=== PATIENT | male | born 1945 | race Caucasian/White ===

== ENCOUNTER 2020-12-22 20:45 | Inpatient (IN) | payer OTHER ==
[~2020-12-22] VITALS: Ht 177.8 cm; Wt 106.2 kg
--- NOTE | ~2020-12-22 | EC ---
PATIENT:LAILA CANAS DATE OF SERVICE: 12/22/20 SEX: M MEDICAL RECORD: [id number] DATE OF : [birth year] LOCATION:[facility] AGE OF PATIENT: 75 ADMISSION DATE: 12/22/20 REFERRING PHYSICIAN: INTERPRETING PHYSICIAN: ROMANA PIPER MD ECHOCARDIOGRAM REPORT ECHO CHARGES 4 ECHO COMPLETE Date: 12/24/20 CLINICAL DIAGNOSIS: LVH ECHOCARDIOGRAPHIC MEASUREMENTS (adult normal given) AC root (d.<3.7cm) 2.8 cm LV Septum d (<1.2 cm> 0.7 cm Valve Excursion 1.8 cm LV Septum (systole) 1.6 cm Left Atria (s.<4.0cm> 3.8 cm LVPW d(<1.2cm) 1.1 cm RV (d.<2.3cm) 3.6 cm LVPW (sytole) 1.8 cm LV diastole(<5.6CM) 6.8 cm MV E-F(>70mm/sec) cm LV systole 4.3 cm LVOT Diameter 1.8 cm MV exc.(>10mm) 1.7 cm Est.ejection fraction (50-75%) % DOPPLER: LVIT cm/sec A 103 cm/sec E 79 cm/sec LA cm/sec RVSP 20 mmHg LVOT 83 cm/sec AOP1/2T m/s Asc. Ao 131 cm/sec RVOT 57 cm/sec RA cm/sec PA 86 cm/sec AV Gradient Peak 6.9 mmHg AV Mean 3.7 mmHg AV Area 2.0 cm MV Gradient Peak 3.6 mmHg MV Mean 2.2 mmHg MV Area cm COMMENTS: Sorority Supervisor: Valencia NORTH Respiratory Therapy Technician: 4 Dr. Piper TAPE# Pericardial Effusion N DATE OF SERVICE: 12/25/2020 PROCEDURE: Transthoracic echocardiogram. FINDINGS: Left ventricle shows mild concentric left ventricular hypertrophy. The overall ejection fraction appears to be normal at 55%. There is no obvious regional wall motion abnormalities. There is diastolic dysfunction. Left atrium not well visualized, but appears to be normal shape, structure, and function. ECHOCARDIOGRAM REPORT [id number] LAILA CANAS RIGHT ATRIUM: 1. Normal size, shape, structure, and function. 2. The aortic valve appears to be grossly normal. 3. Mitral valve appears to be grossly normal with no significant regurgitation. 4. Tricuspid valve has trace tricuspid regurgitation with normal right ventricular systolic pressures. Pericardium appears to be normal. There is no obvious pericardial effusion. There is no obvious pleural effusion. There is no obvious atrial septal defect. IMPRESSION: The patient has evidence of hypertensive heart disease and diastolic dysfunction. Otherwise normal echocardiogram. TRANSINT:[id number] Voice Confirmation ID: [id number] DOCUMENT ID: [id number] ROMANA PIPER MD CC: [id number] DICTATION DATE: 12/25/20 1525 HVAC MAINTENANCE TECHNICIAN: 12/25/20 194 ADM IN [facility] [address] [id number]
[2020-12-22] MEDS ORDERED: [UNRECOGNIZED DRUG - REMARK] (20:50)
[2020-12-22 21:03] VITALS: BP 119/77
[2020-12-22 21:06] LABS: BASOPHILS 0.2 % (0-2); EOSINOPHILS 0.1 % (0-7); HEMATOCRIT 46.7 % (42.0-54.0); HEMOGLOBIN 15.3 g/dL (13.5-17.5); IMMATURE GRANULOCYTES 0.5 % (0-5); LYMPHOCYTES 5.8 % (15-50); MCH 30.9 pg (26.0-34.0); MCHC 32.8 g/dL (31.0-37.0); MCV 94.3 fL (80.0-100.0); MEAN PLATELET VOLUME 11.6 fL (7.4-10.4); MONOCYTES 5.3 % (2-11); NEUTROPHIL ABS# 16.68 10x3/uL (1.78-5.38); NEUTROPHILS 88.1 % (40-80); PLATELET COUNT 173 10x3/uL (130-400); RBC 4.95 10x6/uL (4.20-6.10); RDW 13.7 % (11.5-14.5); WBC 18.9 10x3/uL (4.8-10.8)
[2020-12-22 21:21] LABS: CALC OSMOLALITY 279 mosm/kg (275-300); CALCIUM 9.6 mg/dL (8.5-10.1); CARBON DIOXIDE 24.5 mmol/L (21.0-32.0); CHLORIDE - SERUM 102 mmol/L (98-107); CREATININE - SERUM 1.7 mg/dL (0.6-1.3); GLUCOSE 129 mg/dL (74-106); POTASSIUM - SERUM 3.4 mmol/L (3.5-5.1); SODIUM 138 mmol/L (136-145); UREA NITROGEN 17 mg/dL (7-18); eGFR NON AFRICAN AMERICAN 42 mL/min (90-120)
[2020-12-22 21:26] LABS: INR 1.1 (0.85-1.17); PROTIME 13.2 SECONDS (11.6-15.0)
[2020-12-22 21:26] LABS: NITRITE POSITIVE (NEGATIVE)
[2020-12-22 21:27] LABS: BILIRUBIN NEGATIVE (NEGATIVE); KETONE NEGATIVE (NEGATIVE); UROBILINOGEN NORMAL mg/dL (< 2)
[2020-12-22 21:28] LABS: BACTERIA MANY HPF (NONE SEEN); SQUAMOUS EPITHELIAL NONE SEEN HPF (0-4); WHITE CELLS - URINE >50 HPF (0-1)
[2020-12-22 21:35] LABS: ALBUMIN 3.8 g/dL (3.4-5.0); ALKALINE PHOSPHATASE 82 U/L (30-120); ALT (SGPT) 32 U/L (10-68); BILIRUBIN - TOTAL 0.99 mg/dL (0.2-1.3); C-REACTIVE PROTEIN 10.8 mg/dL (0.0-0.9); CREATINE KINASE 127 UL (21-232); MAGNESIUM - SERUM 1.6 mg/dL (1.8-2.4); PROTEIN - SERUM 7.6 g/dL (6.4-8.2)
[2020-12-22 21:39] LABS: TROPONIN-I < 0.017 ng/mL (0.000-0.060)
--- NOTE | 2020-12-22 22:14 | NUR ---
LAB AT BEDSIDE. BOTH SETS OF BLOOD CULTURES DRAWN AT THIS TIME.
[2020-12-23] VITALS (7 sets, daily range): BP systolic 94–138; BP diastolic 46–79; Ht 177.8 cm; Wt 106.2 kg
--- NOTE | 2020-12-23 00:07 | NUR ---
PT PROVIDED WITH BLANKETS AND ASSITED INTO A POSITION OF COMFORT AT THIS TIME. NO ACUTE DISTRESS NOTED. PT DENIES ANY FURTHER NEEDS.
--- NOTE | 2020-12-23 00:52 | NUR ---
REPORT GIVEN TO MOI SERRANO AT THIS TIME.
[2020-12-23 05:20] LABS: ALBUMIN 3.1 g/dL (3.4-5.0); ALKALINE PHOSPHATASE 64 U/L (30-120); ALT (SGPT) 25 U/L (10-68); BILIRUBIN - TOTAL 0.46 mg/dL (0.2-1.3); CALC OSMOLALITY 283 mosm/kg (275-300); CALCIUM 8.3 mg/dL (8.5-10.1); CARBON DIOXIDE 26.1 mmol/L (21.0-32.0); CHLORIDE - SERUM 108 mmol/L (98-107); CREATININE - SERUM 1.6 mg/dL (0.6-1.3); GLUCOSE 125 mg/dL (74-106); MAGNESIUM - SERUM 2.2 mg/dL (1.8-2.4); POTASSIUM - SERUM 4.5 mmol/L (3.5-5.1); PROTEIN - SERUM 6.4 g/dL (6.4-8.2); SODIUM 141 mmol/L (136-145); TROPONIN-I < 0.017 ng/mL (0.000-0.060); UREA NITROGEN 18 mg/dL (7-18); eGFR NON AFRICAN AMERICAN 45 mL/min (90-120)
[2020-12-23 05:26] LABS: BASOPHILS 0.2 % (0-2); EOSINOPHILS 0 % (0-7); HEMATOCRIT 42.6 % (42.0-54.0); HEMOGLOBIN 13.7 g/dL (13.5-17.5); IMMATURE GRANULOCYTES 0.4 % (0-5); LYMPHOCYTES 9.5 % (15-50); MCH 30.7 pg (26.0-34.0); MCHC 32.2 g/dL (31.0-37.0); MCV 95.5 fL (80.0-100.0); MEAN PLATELET VOLUME 11.2 fL (7.4-10.4); MONOCYTES 6.4 % (2-11); NEUTROPHIL ABS# 16.71 10x3/uL (1.78-5.38); NEUTROPHILS 83.5 % (40-80); PLATELET COUNT 163 10x3/uL (130-400); RBC 4.46 10x6/uL (4.20-6.10); RDW 13.9 % (11.5-14.5)
--- NOTE | 2020-12-23 06:24 | NUR ---
PT ABLE TO TAKE MEDICATION WHOLE, DENIES CURRENT NEEDS. 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
--- NOTE | 2020-12-23 09:07 | NUR ---
PATIENT SITTING UP IN BED WATCHING TV, NO DISTRESS NOTED. RESPIRATIONS EVEN AND UNLABORED, ORIENTED X 4. PATIENT ATE WELL AT BREAKFAST. DENIES ANY NEEDS AT THIS TIME. CALL BUSH IN REACH, SIDE RAILS UP X 2, BED IN LOW POSITION. IV SITE DRY AND INTACT WITH FLUIDS RUNNING AT THIS TIME AT PRESCRIBED RATE.
--- NOTE | 2020-12-23 12:01 | NUR ---
CRITICAL LAB: ROSHAN CAO FROM [facility] IN MICROBIOLOGY. REPORTS POSITVE BC IN 1 BOTTLE: GRAM NEGATIVE RODS. MERON, PRIMARY RN NOTIFIED WILL NOTIFY ADMITTING
--- NOTE | 2020-12-23 17:55 | NUR ---
AFTER PATIENT GOT UP AND AMBULATED AROUND ROOM AND STOOD UP TO URINATE IT WAS NOTED THAT IV TO LEFT AC WAS PULLED OUT. IV DISCONTINUED, TIP INTACT, BLEEDING CONTROLLED. NEW IV STARTED TO RIGHT FOREARM, 22 GAUGE. NS RESTARTED AT THIS TIME.
--- NOTE | 2020-12-23 18:31 | NUR ---
RECEIVED REPORT FROM ALYSON IN ER
[2020-12-24 01:19] VITALS: BP 113/62
[2020-12-24 05:36] VITALS: BP 121/68
[2020-12-24 05:39] LABS: BASOPHILS 0.2 % (0-2); EOSINOPHILS 1.2 % (0-7); HEMOGLOBIN 12.4 g/dL (13.5-17.5); IMMATURE GRANULOCYTES 0.1 % (0-5); LYMPHOCYTE ABS# 1.72 10x3/uL (1.32-3.57); LYMPHOCYTES 12.4 % (15-50); MCH 30.8 pg (26.0-34.0); MCHC 32.6 g/dL (31.0-37.0); MCV 94.5 fL (80.0-100.0); MONOCYTES 7.9 % (2-11); NEUTROPHIL ABS# 10.88 10x3/uL (1.78-5.38); NEUTROPHILS 78.2 % (40-80); PLATELET COUNT 138 10x3/uL (130-400); RBC 4.02 10x6/uL (4.20-6.10); RDW 14.2 % (11.5-14.5)
[2020-12-24 05:51] LABS: WBC 13.9 10x3/uL (4.8-10.8)
--- NOTE | 2020-12-24 06:25 | NUR ---
PT RESTED WELL THROUGHOUT THE SHIFT. NO PAIN NOTED. ABT STILL GOING. BED IN LOWEST POSITION WITH CALL BUSH LIGHT IN REACH.
[2020-12-24 06:45] LABS: ALBUMIN 2.6 g/dL (3.4-5.0); ANION GAP 11.9 mmol/L (8-16); BILIRUBIN - TOTAL 0.37 mg/dL (0.2-1.3); CALCIUM 7.9 mg/dL (8.5-10.1); MAGNESIUM - SERUM 2.2 mg/dL (1.8-2.4); POTASSIUM - SERUM 3.9 mmol/L (3.5-5.1); PROTEIN - SERUM 5.8 g/dL (6.4-8.2)
[2020-12-24 06:47] LABS: CREATININE - SERUM 1.1 mg/dL (0.6-1.3)
[2020-12-24 08:22] VITALS: BP 122/70
[2020-12-24 11:54] VITALS: BP 128/78
--- NOTE | 2020-12-24 16:46 | NUR ---
URINE COLLECTED AROUND 1300 12/24/20 AND TAKEN TO LAB
[2020-12-24 17:12] VITALS: BP 123/64
--- NOTE | 2020-12-24 19:00 | NUR ---
BEDSIDE REPORT RECEIVED AND CARE OF PT ASSUMED. PT LYING IN LOW SEXTON'S POSITION WATCHING TV. IV TO RIGHT FA PATENT WITH NS INFUSING AT 100 ML/HR PER ORDER. O2 IN USE VIA NC AT 2L. WILL MONITOR FOR NEEDS.
[2020-12-24 20:00] VITALS: BP 133/64
--- NOTE | 2020-12-24 20:03 | NUR ---
HS MEDICATIONS GIVEN. WILL CONTINUE TO MONITOR FOR NEEDS.
--- NOTE | 2020-12-24 22:55 | NUR ---
COLLECTED SWAB FOR ORDERED FLU A & B TEST AND DELIVERED TO LAB.
--- NOTE | 2020-12-24 23:13 | NUR ---
COLLECTED URINE FOR ORDERED CULTURE AND DELIVERED TO LAB.
[2020-12-25 01:05] LABS: INFLUENZA TYPE A NEGATIVE (NEGATIVE); INFLUENZA TYPE B NEGATIVE (NEGATIVE)
[2020-12-25 01:25] VITALS: BP 142/73
[2020-12-25 05:47] VITALS: BP 141/70
[2020-12-25 06:45] LABS: BASOPHILS 0.2 % (0-2); EOSINOPHILS 3.6 % (0-7); HEMOGLOBIN 12.5 g/dL (13.5-17.5); IMMATURE GRANULOCYTES 0.2 % (0-5); LYMPHOCYTE ABS# 1.61 10x3/uL (1.32-3.57); LYMPHOCYTES 16.4 % (15-50); MCH 30.8 pg (26.0-34.0); MCHC 32.9 g/dL (31.0-37.0); MCV 93.6 fL (80.0-100.0); MEAN PLATELET VOLUME 11.4 fL (7.4-10.4); MONOCYTES 10.2 % (2-11); NEUTROPHIL ABS# 6.79 10x3/uL (1.78-5.38); NEUTROPHILS 69.4 % (40-80); PLATELET COUNT 148 10x3/uL (130-400); RBC 4.06 10x6/uL (4.20-6.10); RDW 14.2 % (11.5-14.5); WBC 9.8 10x3/uL (4.8-10.8)
[2020-12-25 07:03] LABS: ALBUMIN 2.7 g/dL (3.4-5.0); ALKALINE PHOSPHATASE 59 U/L (30-120); BILIRUBIN - TOTAL 0.33 mg/dL (0.2-1.3); CALCIUM 7.8 mg/dL (8.5-10.1); CARBON DIOXIDE 22.4 mmol/L (21.0-32.0); CHLORIDE - SERUM 107 mmol/L (98-107); GLUCOSE 117 mg/dL (74-106); MAGNESIUM - SERUM 2.1 mg/dL (1.8-2.4); POTASSIUM - SERUM 3.9 mmol/L (3.5-5.1); PROTEIN - SERUM 5.5 g/dL (6.4-8.2); SODIUM 138 mmol/L (136-145); eGFR NON AFRICAN AMERICAN 78 mL/min (90-120)
[2020-12-25 07:06] LABS: ALT (SGPT) 31 U/L (10-68); CALC OSMOLALITY 275 mosm/kg (275-300); UREA NITROGEN 9 mg/dL (7-18)
[2020-12-25 09:04] VITALS: BP 177/84
--- NOTE | 2020-12-25 10:31 | NUR ---
PT WALKED WITH PHYSICAL THERAPY ABOUT 180FT, PT HAS AUDIBLE WHEEZES WITH EXERTION, O2 AT 98% ON 2L NASAL CANNULA
--- NOTE | 2020-12-25 11:10 | NUR ---
PATIENT WALKED 250 FEET WITH CGA-INDEPENDENT IN HALLWAY. PATIENT WAS WEEZING DURING SESSION, O2 SAT AT 97 AFTER WALK.
[2020-12-25 12:43] VITALS: BP 134/77
[2020-12-25 16:35] VITALS: BP 145/69
--- NOTE | 2020-12-25 18:19 | MORECARE ---
CASE MANAGEMENT DISCHARGE SUMMARY PATIENT: LAILA GOINS UNIT: [id number] ADM DATE: 12/22/20 AGE: 75 : 46 SEX: M ROOM/BED: D.2222 AUTHOR: GLORIA HALEY PHYSICIAN: REFERRING PHYSICIAN: YONG CALZADA DO DATE OF SERVICE: 12/25/20 Discharge Plan Patient Name: LAILA GOINS Facility: [facility]:[place] : 1945 Planned Disposition: Home Anticipated Discharge Date: Discharge Date: Expected LOS: Initial Reviewer: [email or web address] Initial Review Date: 12/23/2020 Generated: 12/25/20 7:18 pm Comments DCP- Discharge Planning Updated by [email or web address]: Guille Johnson on 12/25/20 5:[address] CM met with patient to complete DC plan and to evaluate needs. Patient lives independently with his , Kavya Goins ([phone]). At discharge, the patient plans to return home and feels this is a safe discharge. CM discussed availability of home health, rehab services, and medical equipment. Patient declined HHS, SNF, IPR, and DME. Patient voiced no other needs at this time and is satisfied with DC plan. Transportation provider at discharge will be with Kavya. DC IMM delivered, explained, signed by the patient, and placed in chart. Signed form also left with the patient. CM will continue to follow and will assist as needed with dc plans/needs. DCPIA - Discharge Planning Initial Assessment Updated by [id number]: Guille Johnson on 12/25/20 6:15 pm * Is the patient Alert and Oriented? Yes * How many steps to enter\exit or inside your home? 3/0 * PCP [place] physicians Dr. Rodriguez * Pharmacy [place] [facility] * Preadmission Environment Home with Family * ADLs Independent * Equipment None * Other Equipment n/a * List name and contact numbers for known caregivers / representatives who currently or will assist patient after discharge: KAVYA GOINS (dtr) [phone] * Verbal permission to speak to the caregivers and representatives has been obtained from the patient. Yes * Community resources currently utilized None * Please name any agencies selected above. n/a * Additional services required to return to the preadmission environment? No * Can the patient safely return to the preadmission environment? Yes * Has this patient been hospitalized within the prior 30 days at any hospital? No Coverage Notice Reviewer: [id number] Octavio Johnson Notice Issued Date-Time: 12/25/2020 17:50 Notice Type: IM Discharge Notice Notice Delivered To: Patient Relationship to Patient: Self Commercial Lawn Specialist Name: Delivery Method: HAND - Hand Delivered Oriana Days: Prior Verbal Notification: Recipient Understood Notice: Yes Recipient Signature: Yes Med Rec Note Co-signed by Attending: Coverage Notice Comment: DC IMM delivered, explained, signed by the patient, and placed in chart. Patient Name: LAILA GOINS Page [phone] at 1819 All edits/amendments must be made on the electronic document DICTATION DATE: 12/25/201817 EMD SPECIAL EDUCATION TEACHER: VIVIENNE 12/25/201817 RPT#: [id number] DC DATE: STATUS: ADM IN [facility] [address] [place] [address] END OF REPORT
--- NOTE | 2020-12-25 19:00 | NUR ---
BEDSIDE REPORT RECEIVED AND CARE OF PT ASSUMED. PT LYING IN SUPINE POSITION WITH EYES CLOSED. IV TO RIGHT FA PATENT WITH NS INFUSING AT 100 ML/HR. EXPITORY WHEEZES IN ALL LUNG KAUFMAN WITH PRODUCTIVE COUGH. WILL MONITOR FOR NEEDS.
[2020-12-25 20:00] VITALS: BP 147/77
--- NOTE | 2020-12-25 21:18 | NUR ---
HS MEDICATIONS GIVEN. WILL CONTINUE TO MONITOR FOR NEEDS.
--- NOTE | 2020-12-25 22:30 | NUR ---
IV TO RIGHT FA LEAKING AND GETTING RED. REMOVED WITH CATHETER TIP INTACT. RE-SITED TO RIGHT HAND USING 22 GUAGE CATHETER. IV FLUIDS RE-STARTED.
--- NOTE | 2020-12-25 23:15 | NUR ---
CALLED RT TO EVAL PT WITH INCREASED WHEEZING. GAVE PRN UPDRAFT TREATMENT.
[2020-12-26] VITALS: BP 137/79
[2020-12-26 04:00] VITALS: BP 153/86
[2020-12-26 07:05] LABS: BASOPHILS 0.3 % (0-2); EOSINOPHILS 4.7 % (0-7); HEMATOCRIT 37.7 % (42.0-54.0); HEMOGLOBIN 12.4 g/dL (13.5-17.5); IMMATURE GRANULOCYTES 0.1 % (0-5); LYMPHOCYTE ABS# 1.56 10x3/uL (1.32-3.57); LYMPHOCYTES 21.1 % (15-50); MCH 30.5 pg (26.0-34.0); MCHC 32.9 g/dL (31.0-37.0); MCV 92.9 fL (80.0-100.0); MEAN PLATELET VOLUME 10.9 fL (7.4-10.4); MONOCYTES 9.5 % (2-11); NEUTROPHIL ABS# 4.75 10x3/uL (1.78-5.38); NEUTROPHILS 64.3 % (40-80); PLATELET COUNT 163 10x3/uL (130-400); RBC 4.06 10x6/uL (4.20-6.10); RDW 13.9 % (11.5-14.5); WBC 7.4 10x3/uL (4.8-10.8)
[2020-12-26 07:20] LABS: ALBUMIN 2.7 g/dL (3.4-5.0); ALKALINE PHOSPHATASE 60 U/L (30-120); BILIRUBIN - TOTAL 0.33 mg/dL (0.2-1.3); CALC OSMOLALITY 278 mosm/kg (275-300); CALCIUM 8.4 mg/dL (8.5-10.1); CHLORIDE - SERUM 106 mmol/L (98-107); GLUCOSE 118 mg/dL (74-106); POTASSIUM - SERUM 3.7 mmol/L (3.5-5.1); PROTEIN - SERUM 6.1 g/dL (6.4-8.2); SODIUM 140 mmol/L (136-145); UREA NITROGEN 9 mg/dL (7-18); eGFR NON AFRICAN AMERICAN 78 mL/min (90-120)
[2020-12-26 07:21] LABS: ALT (SGPT) 42 U/L (10-68); CARBON DIOXIDE 28.9 mmol/L (21.0-32.0)
[2020-12-26 08:00] VITALS: BP 155/85
--- NOTE | 2020-12-26 08:00 | NUR ---
PATIENT IN BED WITH IV INTACT. NO COMPLAINTS OR SIGNS OF DISTRESS. CALL LIGHT WITHIN REACH.
--- NOTE | 2020-12-26 10:15 | NUR ---
PATIENT STATED HE WOULD WEAR SCDS BUT HAS NO MACHINE. ROOMS ARE FULL ON THIS FLOOR AT THIS TIME, NO SCD MACHINE I CAN USE AT THIS TIME FOR PATIENT. CALLED [facility] THEY SAID THEY HAVE NONE. WAITING ON SCD MACHINE. PATIENT IS ON LOVENOX.
[2020-12-26 12:00] VITALS: BP 155/76
--- NOTE | 2020-12-26 13:32 | NUR ---
PATIENT IS WALKING 500FT [facility] SAFE TO WALK WITH STAFF WILL WALK PATIENT AGAIN TOMORROW
--- NOTE | 2020-12-26 15:25 | NUR ---
Nutrition follow-up: Diet order: low sodium PO intake adequate per nurse Labs reviewed WT: 234# PO intake good at this time RDN will follow-up: 12/29/20
--- NOTE | 2020-12-26 17:46 | NUR ---
PATIENT IN BED WITH IV INTACT. SITTING UP EATING AT THIS TIME. BSCDS ON AND WORKING. CALL LIGHT WITHIN REACH.
--- NOTE | 2020-12-26 19:00 | NUR ---
BEDSIDE REPORT RECEIVED AND CARE OF PT ASSUMED. PT LYING IN SUPINE POSITION WATCHING TV. IV TO RIGHT HAND PATENT WITH NS INFUSING AT 100 ML/HR. O2 IN USE VIA NC AT 2L. PT WITH EXPIRATORY WHEEZES IN UPPER LOBES WITH DIMINISHED BASES. SCD'S IN USE ON BLE. WILL MONITOR FOR NEEDS.
[2020-12-26 20:00] VITALS: BP 137/75
--- NOTE | 2020-12-26 20:23 | NUR ---
HS MEDICATIONS GIVEN. WILL CONTINUE TO MONITOR FOR NEEDS.
[2020-12-27] VITALS: BP 127/73
[2020-12-27 04:00] VITALS: BP 136/78
[2020-12-27 06:14] LABS: ALBUMIN 2.7 g/dL (3.4-5.0); ANION GAP 11.2 mmol/L (8-16); BILIRUBIN - TOTAL 0.28 mg/dL (0.2-1.3); CALCIUM 8.5 mg/dL (8.5-10.1); CREATININE - SERUM 1.2 mg/dL (0.6-1.3); MAGNESIUM - SERUM 2.2 mg/dL (1.8-2.4); POTASSIUM - SERUM 3.2 mmol/L (3.5-5.1); PROTEIN - SERUM 6.4 g/dL (6.4-8.2)
[2020-12-27 06:29] LABS: BASOPHILS 0.3 % (0-2); EOSINOPHILS 5.5 % (0-7); HEMATOCRIT 38.6 % (42.0-54.0); HEMOGLOBIN 12.6 g/dL (13.5-17.5); IMMATURE GRANULOCYTES 0.3 % (0-5); LYMPHOCYTE ABS# 1.51 10x3/uL (1.32-3.57); LYMPHOCYTES 25.3 % (15-50); MCH 30.5 pg (26.0-34.0); MCHC 32.6 g/dL (31.0-37.0); MCV 93.5 fL (80.0-100.0); MEAN PLATELET VOLUME 10.9 fL (7.4-10.4); MONOCYTES 9.7 % (2-11); NEUTROPHILS 58.9 % (40-80); RBC 4.13 10x6/uL (4.20-6.10); RDW 13.9 % (11.5-14.5)
[2020-12-27 06:30] LABS: PLATELET COUNT 199 10x3/uL (130-400)
[2020-12-27 10:27] VITALS: BP 130/67
--- NOTE | 2020-12-27 10:51 | NUR ---
PATIENT SHOWERED AND BED CHANGED BY STUDENT AT THIS TIME. IV INTACT. NO COMPLAINTS. LUNGS SOUND BETTER TODAY. NO WHEEZING. CALL LIGHT WITHIN REACH.
[2020-12-27] MEDS ORDERED: MUCINEX600 MG PO (11:50)
[2020-12-27] MEDS ORDERED: PROTONIX40 MG PO (11:50)
[2020-12-27] MEDS ORDERED: FLORAJEN3 CAPS460 MG PO (11:50)
[2020-12-27] MEDS ORDERED: LEVOFLOXACIN500 MG PO (11:50)
--- NOTE | 2020-12-27 12:55 | MORECARE ---
CASE MANAGEMENT DISCHARGE SUMMARY PATIENT: LAILA GOINS UNIT: [id number] ADM DATE: 12/22/20 AGE: 75 : 46 SEX: M ROOM/BED: D.2222 AUTHOR: GLORIA HALEY PHYSICIAN: REFERRING PHYSICIAN: YONG CALZADA DO DATE OF SERVICE: 12/27/20 Discharge Plan Patient Name: LAILA GOINS Facility: [facility]:[place] : 1945 Planned Disposition: Home Anticipated Discharge Date: Discharge Date: Expected LOS: Initial Reviewer: [id number] Initial Review Date: 12/23/2020 Generated: 12/27/20 1:54 pm Comments DCP- Discharge Planning Updated by [id number]: Alina Renee on 12/27/20 11:[address] Patient Name: LAILA GOINS Encounter No: [id number] : 1945 Primary Insurance: [employer] Anticipated DC Date: Planned Disposition: Home External Planned Provider: : DCP follow-up note: Patient and family in agreement with discharge plan. No changes to plan. PATIENT SIGNED DECLINATION FORM FOR HOME HEALTH. THE DOCTOR RECOMMENDED IT BUT PATIENT HAS DECLINED. Case management will follow and assist as needed. Alina Renee DCP- Discharge Planning Updated by [id number]: Guille Johnson on 12/25/20 5:[address] CM met with patient to complete DC plan and to evaluate needs. Patient lives independently with his , Kavya Goins ([phone]). At discharge, the patient plans to return home and feels this is a safe discharge. CM discussed availability of home health, rehab services, and medical equipment. Patient declined HHS, SNF, IPR, and DME. Patient voiced no other needs at this time and is satisfied with DC plan. Transportation provider at discharge will be with Kavya. DC IMM delivered, explained, signed by the patient, and placed in chart. Signed form also left with the patient. CM will continue to follow and will assist as needed with dc plans/needs. DCPIA - Discharge Planning Initial Assessment Updated by [id number]: Guille Johnson on 12/25/20 6:15 pm * Is the patient Alert and Oriented? Yes * How many steps to enter\exit or inside your home? 3/0 * PCP [place] physicians Dr. Rodriguez * Pharmacy [place] [facility] * Preadmission Environment Home with Family * ADLs Independent * Equipment None * Other Equipment n/a * List name and contact numbers for known caregivers / representatives who currently or will assist patient after discharge: KAVYA GOINS (dtr) [phone] * Verbal permission to speak to the caregivers and representatives has been obtained from the patient. Yes * Community resources currently utilized None * Please name any agencies selected above. n/a * Additional services required to return to the preadmission environment? No * Can the patient safely return to the preadmission environment? Yes * Has this patient been hospitalized within the prior 30 days at any hospital? No Coverage Notice Reviewer: [id number] Octavio Johnson Notice Issued Date-Time: 12/25/2020 17:50 Notice Type: IM Discharge Notice Notice Delivered To: Patient Relationship to Patient: Self Steel Molder Name: Delivery Method: HAND - Hand Delivered Oriana Days: Prior Verbal Notification: Recipient Understood Notice: Yes Recipient Signature: Yes Med Rec Note Co-signed by Attending: Coverage Notice Comment: DC IMM delivered, explained, signed by the patient, and placed in chart. Reviewer: [id number] - lAina Renee Notice Issued Date-Time: 12/27/2020 12:47 Notice Type: Patient Choice Letter Notice Delivered To: Relationship to Patient: Steel Molder Name: Delivery Method: - Oriana Days: Prior Verbal Notification: Recipient Understood Notice: Recipient Signature: Med Rec Note Co-signed by Attending: Coverage Notice Comment: REFUSAL OF HOME HEALTH Last DP export: 12/25/20 5:19 p Patient Name: LAILA GOINS Page [phone] at 1255 All edits/amendments must be made on the electronic document DICTATION DATE: 12/27/20 1255 DRYWALL TAPER HELPER: VIVIENNE 12/27/20 1255 RPT#: [id number] DC DATE: STATUS: ADM IN [facility] [address] [place] [address] END OF REPORT
[2020-12-27 13:58] VITALS: BP 142/85
--- NOTE | 2020-12-27 16:18 | NUR ---
PATIENT RECIEVED DC INSTRUCTIONS AND PRESCRIPTIONS. NO QUESTIONS AT THIS TIME. IV REMOVED WITH CATH TIP INTACT. WAITING ON TRANSPORTATION. CALL LIGHT WITHIN REACH.
--- NOTE | 2020-12-27 17:39 | NUR ---
PATIENT ESCORTED OUT OF HOSPITAL VIA WC WITH PERSONAL BELONGINGS TO PRIVATE VEHICLE BY INFORMATION SECURITY DIRECTOR.
--- NOTE | 2020-12-29 08:38 | MORECARE ---
CASE MANAGEMENT DISCHARGE SUMMARY PATIENT: LAILA GOINS UNIT: [id number] ADM DATE: 12/22/20 AGE: 75 : 46 SEX: M ROOM/BED: D.2222 AUTHOR: GLORIA HALEY PHYSICIAN: REFERRING PHYSICIAN: YONG CALZADA DO DATE OF SERVICE: 12/29/20 Discharge Plan Patient Name: LAILA GOINS Facility: [facility]:[place] : 1945 Planned Disposition: Home Anticipated Discharge Date: Discharge Date: 12/27/2020 Expected LOS: Initial Reviewer: [email or web address] Initial Review Date: 12/23/2020 Generated: 12/29/20 9:37 am Comments DCP- Discharge Planning Updated by [id number]: Alina Renee on 12/27/20 11:[address] Patient Name: LAILA GOINS Encounter No: [id number] : 1945 Primary Insurance: [employer] Anticipated DC Date: Planned Disposition: Home External Planned Provider: : DCP follow-up note: Patient and family in agreement with discharge plan. No changes to plan. PATIENT SIGNED DECLINATION FORM FOR HOME HEALTH. THE DOCTOR RECOMMENDED IT BUT PATIENT HAS DECLINED. Case management will follow and assist as needed. Alina Renee DCP- Discharge Planning Updated by [email or web address]: Guille Johnson on 12/25/20 5:[address] CM met with patient to complete DC plan and to evaluate needs. Patient lives independently with his , Kavya Goins ([phone]). At discharge, the patient plans to return home and feels this is a safe discharge. CM discussed availability of home health, rehab services, and medical equipment. Patient declined HHS, SNF, IPR, and DME. Patient voiced no other needs at this time and is satisfied with DC plan. Transportation provider at discharge will be with Kavya. DC IMM delivered, explained, signed by the patient, and placed in chart. Signed form also left with the patient. CM will continue to follow and will assist as needed with dc plans/needs. DCPIA - Discharge Planning Initial Assessment Updated by [email or web address]: Guille Johnson on 12/25/20 6:15 pm * Is the patient Alert and Oriented? Yes * How many steps to enter\exit or inside your home? 3/0 * PCP [place] physicians Dr. Rodriguez * Pharmacy [place] [facility] * Preadmission Environment Home with Family * ADLs Independent * Equipment None * Other Equipment n/a * List name and contact numbers for known caregivers / representatives who currently or will assist patient after discharge: KAVYA GOINS (dtr) [phone] * Verbal permission to speak to the caregivers and representatives has been obtained from the patient. Yes * Community resources currently utilized None * Please name any agencies selected above. n/a * Additional services required to return to the preadmission environment? No * Can the patient safely return to the preadmission environment? Yes * Has this patient been hospitalized within the prior 30 days at any hospital? No Coverage Notice Reviewer: [id number] Octavio Johnson Notice Issued Date-Time: 12/25/2020 17:50 Notice Type: IM Discharge Notice Notice Delivered To: Patient Relationship to Patient: Self Teaching Supervisor Name: Delivery Method: HAND - Hand Delivered Oriana Days: Prior Verbal Notification: Recipient Understood Notice: Yes Recipient Signature: Yes Med Rec Note Co-signed by Attending: Coverage Notice Comment: DC IMM delivered, explained, signed by the patient, and placed in chart. Reviewer: [email or web address] Octavio Renee Notice Issued Date-Time: 12/27/2020 12:47 Notice Type: Patient Choice Letter Notice Delivered To: Relationship to Patient: Teaching Supervisor Name: Delivery Method: - Oriana Days: Prior Verbal Notification: Recipient Understood Notice: Recipient Signature: Med Rec Note Co-signed by Attending: Coverage Notice Comment: REFUSAL OF HOME HEALTH Reviewer: [id number] Octavio Renee Notice Issued Date-Time: 12/27/2020 14:11 Notice Type: IM Discharge Notice Notice Delivered To: Relationship to Patient: Teaching Supervisor Name: Delivery Method: - Oriana Days: Prior Verbal Notification: Recipient Understood Notice: Recipient Signature: Med Rec Note Co-signed by Attending: Coverage Notice Comment: Last DP export: 12/27/20 11:55 am Patient Name: LAILA GOINS Page [phone] at 0838 All edits/amendments must be made on the electronic document DICTATION DATE: 12/29/20837 SPECIAL EFFECTS DESIGNER: VIVIENNE 12/29/20837 RPT#: [id number] DC DATE:12/27/20 STATUS: DIS IN [facility] [address] [place] [address] END OF REPORT
== END 2020-12-27 17:41 | disposition home or self-care (01) | DRG 871 ==
LOC: D.ER 20:45 → D.EDHOLD 22:14 → D.MS 22:14
PROVIDERS: Emergency Medicine; Family Medicine; ADMIT Family Medicine; ATTEND Family Medicine
DX: A41.9 Sepsis, unspecified organism (principal); J15.0 Pneumonia due to Klebsiella pneumoniae; N39.0 Urinary tract infection, site not specified; N17.9 Acute kidney failure, unspecified; R78.81 Bacteremia; E87.6 Hypokalemia; E83.42 Hypomagnesemia; I10 Essential (primary) hypertension; E78.5 Hyperlipidemia, unspecified; I95.1 Orthostatic hypotension; R55 Syncope and collapse